=== PATIENT | female | born 1965 | race Caucasian/White ===

== ENCOUNTER 2017-02-17 08:33 | Emergency (ER) | payer SELFPAY ==
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
--- NOTE | 2017-02-17 09:42 | CR ---
EXAMINATION: Left knee HISTORY: Pain COMPARISON: None TECHNIQUE: 3 views FINDINGS/IMPRESSION: There is no acute osseous abnormality, dislocation, or fracture. Bone minerali zation and joint spaces appear normal. There is no soft tissue swelling or joint effusion.
== END 2017-02-17 10:20 | disposition home or self-care (01) ==
LOC: MW.ED 08:33
DX: S80.212A Abrasion, left knee, initial encounter (principal); Z79.899 Other long term (current) drug therapy; V89.2XXA Person injured in unspecified motor-vehicle accident, traffic, initial encounter; Y92.410 Unspecified street and highway as the place of occurrence of the external cause
CPT/HCPCS: 73562-26-LT; 73562-LT; 99282; 99283

== ENCOUNTER 2017-08-13 19:22 | Emergency (ER) | payer BC ==
[2017-08-13] MEDS ORDERED: Morphine 4 MG/ML Syringe IVPUSH ONE (19:33)
[2017-08-13] MEDS ORDERED: Sodium Chloride 0.9% 10 ML Syringe FLUSH PRN (19:33)
[2017-08-13] MEDS ORDERED: Ondansetron 4 MG/2 ML SDV IVPUSH ONE (19:33)
[2017-08-13] MEDS ORDERED: Sodium Chloride 0.9% 2.5 ML Syringe FLUSH PRN (19:33)
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
[2017-08-13] MEDS ORDERED: Ketorolac 30 MG/ML SDV IVPUSH ONE (20:30)
[2017-08-13] MEDS ORDERED: Diphtheria,Pertussis(Acell),Tetanus Vaccine 0.5 ML Syringe IM ONE (20:40)
[2017-08-13] MEDS ORDERED: Silver Sulfadiazine 1% Crm 400 GM Jar TOP SCH (21:00)
[2017-08-13] MEDS ORDERED: Silver Sulfadiazine 1% Crm 50 GM Tube TOP SCH (21:00)
== END 2017-08-13 20:51 | disposition home or self-care (01) ==
LOC: MW.ED 19:22
DX: T24.201A Burn of second degree of unspecified site of right lower limb, except ankle and foot, initial encounter (principal); F32.9 Major depressive disorder, single episode, unspecified; Z79.899 Other long term (current) drug therapy; F17.210 Nicotine dependence, cigarettes, uncomplicated
CPT/HCPCS: 16020; 96374; 96375; 99283; A9270; J1885; J2270; J2405

== ENCOUNTER 2017-12-06 11:26 | Emergency (ER) | payer BC ==
[2017-12-06] MEDS ORDERED: Sodium Chloride 0.9% 1,000 ML IV ONE (12:13)
--- NOTE | 2017-12-06 12:16 | EDM.PDOC ---
ED HPI GENERAL MEDICAL PROBLEM - General Chief Complaint: EYE CARE PROFESSIONAL Problem Stated Complaint: HEAVY BLEEDING Time Seen by Provider: 12/06/17 12:06 - History of Present Illness INITIAL COMMENTS - FREE TEXT/NARRATIVE: HISTORY AND PHYSICAL: History of present illness: Patient's 52-year-old female who presents with concern of vaginal bleeding worse over last 1 week patient also had a fall recently and injured her right shoulder she denies chest pain or shortness of breath denies vomiting she states she's felt generally weak denies fever chills Review of systems: As per history of present illness and below otherwise all systems reviewed and negative. Past medical history: As per history of present illness and as reviewed below otherwise noncontributory. Surgical history: As per history of present illness and as reviewed below otherwise noncontributory. Social history: No reported history of drug or alcohol abuse. Family history: As per history of present illness and as reviewed below otherwise noncontributory. Physical exam: HEENT: Atraumatic, normocephalic, pupils reactive, negativescleral icterus, mucous membranes moist, throat clear, neck supple, nontender, trachea midline. Lungs: Clear to auscultation, breath sounds equal bilaterally, chest nontender. Heart: S1S2, regular, negative for clicks, rubs, or JVD. Abdomen: Soft, nondistended, nontender. Negative for masses or hepatosplenomegaly. Negative for costovertebral tenderness. Pelvis: Stable nontender. Genitourinary: Deferred. Rectal: Deferred. Extremities: Atraumatic, negative for cords or calf pain. Neurovascular unremarkable. Neuro: Awake, alert, oriented. Cranial nerves II through XII unremarkable. Cerebellum unremarkable. Motor and sensory unremarkable throughout. Exam nonfocal. Diagnostics: CBC CMP EKG PT/INR hCG x-ray right shoulder chest x-ray Therapeutics: Saline 1 L bolus Impression: #1 vaginal bleeding #2 right shoulder injury Definitive disposition and diagnosis as appropriate pending reevaluation and review of above. right arm Pain Score (Numeric/FACES): 7 - Related Data Allergies Allergy/AdvReac Type Severity Reaction Status Date / Time No Known Allergies Allergy Verified 12/06/17 12:42 Home Meds: Home Meds Sertraline HCl [Zoloft] 200 mg PO DAILY 02/17/17 [History] Past Medical History - Past Health History Medical/Surgical History: Denies Medical/Surgical History HEENT History: Reports: Cataract Cardiovascular History: Reports: None Respiratory History: Reports: None Gastrointestinal History: Reports: None Genitourinary History: Reports: None Musculoskeletal History: Reports: None Neurological History: Reports: None Psychiatric History: Reports: Depression Endocrine/Metabolic History: Reports: None Hematologic History: Reports: None Immunologic History: Reports: None Oncologic (Cancer) History: Reports: None Dermatologic History: Reports: None - Infectious Disease History Infectious Disease History: Reports: Chicken Pox - Past Surgical History GI Surgical History: Reports: Appendectomy Social & Family History - Family History Family Medical History: Noncontributory - Caffeine Use Caffeine Use: Reports: Coffee ED ROS GENERAL - Review of Systems Review Of Systems: ROS reveals no pertinent complaints other than HPI. 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 who will see patient has a outpatient she recommended Provera 10 mg daily for 10 days patient be given this prescription and encouraged to follow-up as discussed and return as needed Last Recorded V/S: Last Vital Signs Temp 36.6 C 12/06/17 11:28 Pulse 80 12/06/17 13:35 Resp 16 12/06/17 13:35 BP 177/80 H 12/06/17 13:35 Pulse Ox 100 12/06/17 13:35 Orthostatic Blood Pressure [ 147/87 Standing] Orthostatic Blood Pressure [ 140/79 Sitting] Orthostatic Blood Pressure [ 140/78 Supine] - Orders/Labs/Meds Orders: Active Orders 24 hr Category Date Time Status EKG Documentation Completion [RC] STAT Care 12/06/17 12:12 Active Orthostatic Vital Signs [RC] ASDIRECTED Care 12/06/17 12:14 Active Shoulder Comp Rt [CR] Stat Exams 12/06/17 12:17 Taken DRUG SCREEN, URINE [URCHEM] Stat Lab 12/06/17 12:05 Ordered Labs: Laboratory Tests 12/06/17 12/06/17 12/06/17 Range/Units 12:05 12:17 12:17 WBC 7.06 (4.0-11.0) K/uL RBC 4.81 (4.30-5.90) M/uL Hgb 8.3 L (12.0-16.0) g/dL Hct 29.6 L (36.0-46.0) % MCV 61.5 L (80.0-98.0) fL MCH 17.3 L (27.0-32.0) pg MCHC 28.0 L (31.0-37.0) g/dL RDW Std Deviation 42.3 (28.0-62.0) fl RDW Coeff of Hallie 19 H (11.0-15.0) % Plt Count 213 (150-400) K/uL Add Manual Diff YES Neutrophils % (Manual) 70 (48.0-80.0) % Band Neutrophils % 4 % Lymphocytes % (Manual) 19 (16.0-40.0) % Monocytes % (Manual) 6 (0.0-15.0) % Eosinophils % (Manual) 1 (0.0-7.0) % Nucleated RBC % 0.0 /100WBC Absolute Seg Neuts 4.9 (1.4-5.7) Band Neutrophils # 0.3 Lymphocytes # (Manual) 1.3 (0.6-2.4) Monocytes # (Manual) 0.4 (0.0-0.8) Eosinophils # (Manual) 0.1 (0.0-0.7) Nucleated RBCs # 0 K/uL Poikilocytosis 2+ MODERATE Anisocytosis 2+ MODERATE INR 0.98 Sodium (136-145) mmol/L Potassium (3.5-5.1) mmol/L Chloride (98-107) mmol/L Carbon Dioxide (21.0-32.0) mmol/L BUN (7.0-18.0) mg/dL Creatinine (0.6-1.0) mg/dL Est Cr Clr Drug Dosing mL/min Estimated GFR (MDRD) ml/min Glucose (74-106) mg/dL Calcium (8.5-10.1) mg/dL Total Bilirubin (0.2-1.0) mg/dL AST (15-37) IU/L ALT (14-63) IU/L Alkaline Phosphatase (46-116) U/L Total Protein (6.4-8.2) g/dL Albumin (3.4-5.0) g/dL Globulin (2.0-3.5) g/dL Albumin/Globulin Ratio (1.3-2.8) HCG, Qual (NEG) Urine Opiates Screen NEGATIVE (NEGATIVE) Ur Oxycodone Screen NEGATIVE (NEGATIVE) Urine Methadone Screen NEGATIVE (NEGATIVE) Ur Barbiturates Screen NEGATIVE (NEGATIVE) Ur Phencyclidine Scrn NEGATIVE (NEGATIVE) Ur Amphetamine Screen NEGATIVE (NEGATIVE) U Methamphetamines Scrn NEGATIVE (NEGATIVE) U Benzodiazepines Scrn NEGATIVE (NEGATIVE) U Cocaine Metab Screen NEGATIVE (NEGATIVE) U Marijuana (THC) Screen NEGATIVE (NEGATIVE) 12/06/17 12/06/17 Range/Units 12:17 12:17 WBC (4.0-11.0) K/uL RBC (4.30-5.90) M/uL Hgb (12.0-16.0) g/dL Hct (36.0-46.0) % MCV (80.0-98.0) fL MCH (27.0-32.0) pg MCHC (31.0-37.0) g/dL RDW Std Deviation (28.0-62.0) fl RDW Coeff of Hallie (11.0-15.0) % Plt Count (150-400) K/uL Add Manual Diff Neutrophils % (Manual) (48.0-80.0) % Band Neutrophils % % Lymphocytes % (Manual) (16.0-40.0) % Monocytes % (Manual) (0.0-15.0) % Eosinophils % (Manual) (0.0-7.0) % Nucleated RBC % /100WBC Absolute Seg Neuts (1.4-5.7) Band Neutrophils # Lymphocytes # (Manual) (0.6-2.4) Monocytes # (Manual) (0.0-0.8) Eosinophils # (Manual) (0.0-0.7) Nucleated RBCs # K/uL Poikilocytosis Anisocytosis INR Sodium 137 (136-145) mmol/L Potassium 3.9 (3.5-5.1) mmol/L Chloride 103 (98-107) mmol/L Carbon Dioxide 26.9 (21.0-32.0) mmol/L BUN 10 (7.0-18.0) mg/dL Creatinine 0.8 (0.6-1.0) mg/dL Est Cr Clr Drug Dosing 67.27 mL/min Estimated GFR (MDRD) > 60.0 ml/min Glucose 98 (74-106) mg/dL Calcium 8.8 (8.5-10.1) mg/dL Total Bilirubin 0.3 (0.2-1.0) mg/dL AST 12 L (15-37) IU/L ALT 18 (14-63) IU/L Alkaline Phosphatase 43 L (46-116) U/L Total Protein 7.5 (6.4-8.2) g/dL Albumin 4.4 (3.4-5.0) g/dL Globulin 3.1 (2.0-3.5) g/dL Albumin/Globulin Ratio 1.4 (1.3-2.8) HCG, Qual NEGATIVE (NEG) Urine Opiates Screen (NEGATIVE) Ur Oxycodone Screen (NEGATIVE) Urine Methadone Screen (NEGATIVE) Ur Barbiturates Screen (NEGATIVE) Ur Phencyclidine Scrn (NEGATIVE) Ur Amphetamine Screen (NEGATIVE) U Methamphetamines Scrn (NEGATIVE) U Benzodiazepines Scrn (NEGATIVE) U Cocaine Metab Screen (NEGATIVE) U Marijuana (THC) Screen (NEGATIVE) Meds: Medications Discontinued Medications Generic Name Dose Route Start Last Admin Trade Name Freq PRN Reason Stop Dose Admin Sodium Chloride 1,000 mls @ 999 mls/hr 12/06/17 12:13 12/06/17 12:21 Normal Saline IV 12/06/17 13:13 999 mls/hr STAT ONE Administration Departure - Departure Time of Disposition: 14:14 Disposition: Against Medical Advice 07 Condition: Good Clinical Impression: Anemia, Vaginal bleeding - Discharge Information Referrals: PCP,None [Primary Care Provider] - Vivi Gautam MD [Physician] - Forms: ED Department Discharge - My Orders Last 24 Hours: My Active Orders 12/06/17 12:05 DRUG SCREEN, URINE [URCHEM] Stat 12/06/17 12:12 EKG Documentation Completion [RC] STAT 12/06/17 12:14 Orthostatic Vital Signs [RC] ASDIRECTED 12/06/17 12:17 Shoulder Comp Rt [CR] Stat - Assessment/Plan Last 24 Hours: My Active Orders 12/06/17 12:05 DRUG SCREEN, URINE [URCHEM] Stat 12/06/17 12:12 EKG Documentation Completion [RC] STAT 12/06/17 12:14 Orthostatic Vital Signs [RC] ASDIRECTED 12/06/17 12:17 Shoulder Comp Rt [CR] Stat
[2017-12-06 12:46] LABS: CHLORIDE,CL 103 mmol/L (98-107); SODIUM,NA 137 mmol/L (136-145)
--- NOTE | 2017-12-07 14:27 | CR ---
EXAM DATE: 12/06/17 PATIENT'S AGE: 52 Patient: MARGARITA ALBARADO Facility: [place], [place] Site . Site : [id number] Study: XRay Shoulder Right [id number]/[id number] 2:29:52 PM Ordering Physician: Bettie Lanza Final Report: INDICATION: Pain. TECHNIQUE: Two views of the right shoulder. FINDINGS: No acute or healing fracture or dislocation. Arthritic change in the acromioclavicular joint. No soft tissue calcifications. IMPRESSION: No acute bony abnormality. Degenerative change. Dictated by Terell Weeks MD @ Dec 06 2017 2:42PM (Electronic Signature) Report Signed by Proxy. RUMA
== END 2017-12-06 14:25 | disposition left against medical advice (07) ==
LOC: MW.ED 11:26
DX: S49.91XA Unspecified injury of right shoulder and upper arm, initial encounter (principal); N93.9 Abnormal uterine and vaginal bleeding, unspecified; D64.9 Anemia, unspecified; F32.9 Major depressive disorder, single episode, unspecified; Z79.899 Other long term (current) drug therapy; W19.XXXA Unspecified fall, initial encounter
CPT/HCPCS: 36415; 73030; 80053; 80305; 84703; 85025; 85610; 93005; 96360; 99284; J7040